=== PATIENT | male | born 1955 | race Caucasian/White ===

== ENCOUNTER → 2017-05-26 | Outpatient (CLI) | payer BC ==
--- NOTE | 2017-05-26 13:52 | DIREP ---
PROCEDURE:XRAY KNEE 1-2 VWS-RT COMPARISON:None. INDICATIONS:RIGHT KNEE PAIN FINDINGS: BONES:Normal. JOINTS:Moderate degenerative loss of joint space in the medial compartment. Mild osteophytosis in medial lateral, and patellofemoral compartment. Small joint effusion. SOFT TISSUES:Normal. OTHER:No additional findings. CONCLUSION: 1. Mild degenerative joint disease. Small joint effusion. Dictated by: Kevin Cao Jr. on 05/26/2017 at 01:40 PM
== END | disposition home or self-care (01) ==
LOC: RAD 11:28
PROVIDERS: ATTEND Internal Medicine
DX: M17.11 Unilateral primary osteoarthritis, right knee (principal)
CPT/HCPCS: 73560